=== PATIENT | male | born 1960 | race African-American/Black ===

== ENCOUNTER 2017-12-06 06:58 | Emergency (ER) | payer SELFPAY ==
[~2017-12-06] VITALS: Ht 190.5 cm; Wt 87.0 kg
[2017-12-06] MEDS ORDERED: ONDANSETRON HCL 4MG/2ML VIAL IV STA (07:22)
[2017-12-06] MEDS ORDERED: FENTANYL CITRATE/PF 50MCG/ML 2ML VIAL IV ONE (07:30)
[2017-12-06] MEDS ORDERED: PANTOPRAZOLE SODIUM 40 MG/VIAL IV ONE (07:30)
[2017-12-06] MEDS ORDERED: PANTOPRAZOLE 80 MG in SODIUM CHLORIDE 0.9% 100 ML IV SCH ×2 (07:30→08:30)
[2017-12-06] MEDS ORDERED: SODIUM CHLORIDE 0.9% 1000ML BAG (SEPSIS BOLUS) IV ONE (07:30)
[2017-12-06 08:06] LABS: BG BASE EXCESS -10.3 mmol/L (-2.0-2.0); BG CARBOXYHEMOGLOBIN 0.3 % (0.5-1.5); BG DEOXYHEMOGLOBIN 1.7 % (0.0-5.0); BG HCO3 ACT 15.5 mmol/L (22.0-26.0); BG METHEMOGLOBIN 0.2 % (0.0-1.5); BG OXYGEN SATURATION 98.3 % (92.0-98.5); BG OXYHEMOGLOBIN 97.8 % (94.0-97.0); BG PCO2 34.5 mmHg (35.0-45.0); BG PH 7.271 (7.350-7.450); BG PO2 141.5 mmHg (75.0-100.0); BG SAMPLE SITE RIGHT RADIAL; BG TOTAL HEMOGLOBIN 14.3 g/dL (12.0-18.0); BG VENT MODE MASK - NRB
[2017-12-06 08:16] LABS: BASOPHILS % 0.3 % (0.0-2.0); EOSINOPHILS % 0.6 % (0.0-5.0); HEMATOCRIT. 41.2 % (42.0-52.0); HEMOGLOBIN. 13.6 g/dL (14.0-18.0); LYMPHOCYTES % 14.2 % (20.0-50.0); MEAN CORPUSCULAR VOLUME 88.1 fL (80.0-94.0); MEAN PLATELET VOLUME 8.3 fl (7.4-10.4); MONOCYTES % 6.1 % (2.0-8.0); NEUTROPHILS % 78.8 % (40.0-76.0); PLATELET 249 x1000/uL (130-400); RED BLOOD CELL COUNT 4.67 mill/uL (4.7-6.1); RED CELL DISTRIBUTION WIDTH 13.9 % (11.6-14.6)
[2017-12-06 08:21] LABS: INR 1.1; PROTHROMBIN TIME 11.3 sec (9.4-11.6)
[2017-12-06 08:25] LABS: CHLORIDE 100 mEq/L (98-107)
[2017-12-06 08:29] LABS: CLARITY URINE CLEAR (CLEAR); COLOR URINE DARK YELLOW (YELLOW); KETONES URINE TRACE (NEGATIVE); LEUKOCYTE ESTERASE URINE NEGATIVE (NEGATIVE); NITRITE URINE NEGATIVE (NEGATIVE); OCCULT BLOOD URINE NEGATIVE (NEGATIVE); PROTEIN URINE NEGATIVE (NEGATIVE); SPECIFIC GRAVITY URINE 1.031 (1.005-1.030); UROBILINOGEN URINE 0.2 E.U./dL (0.2-1.0)
[2017-12-06 08:29] LABS: ETHANOL BLOOD < 10 mg/dL; TOTAL IRON BINDING CAPACITY 304 ug/dL (250-450); TROPONIN I 0.32 ng/mL (0.00-0.04)
[2017-12-06 08:45] LABS: *AMPHETAMINES SCREEN URINE NEGATIVE (NEGATIVE); *BARBITURATES SCREEN URINE NEGATIVE (NEGATIVE); *BENZODIAZEPINES SCREEN URINE NEGATIVE (NEGATIVE); *COCAINE SCREEN URINE NEGATIVE (NEGATIVE); CANNABINOID URINE SCREEN PRESUMTIVE POSITIVE (NEGATIVE); METHADONE URINE SCREEN NEGATIVE (NEGATIVE); OPIATES URINE SCREEN PRESUMTIVE POSITIVE (NEGATIVE); PHENCYCLIDINE URINE SCREEN NEGATIVE (NEGATIVE)
[2017-12-06] MEDS ORDERED: ALTEPLASE 100 MG in BAG 1 EACH IV ONE (09:30)
[2017-12-06] MEDS ORDERED: ALTEPLASE 100MG/VIAL IV ONE (09:30)
[2017-12-06] MEDS ORDERED: EPINEPHRINE 0.1MG/ML (1:10,000) 10ML SYR ONE ×4 (09:30→10:34)
[2017-12-06] MEDS ORDERED: NOREPINEPHRINE 4 MG in DEXT 5% WATER 246 ML IV ONE (09:45)
[2017-12-06] MEDS ORDERED: SUCCINYLCHOLINE CHLORIDE 200MG/10ML VIAL IV ONE ×2 (10:00→10:34)
[2017-12-06] MEDS ORDERED: ETOMIDATE 2MG/ML 10ML VIAL IV ONE ×2 (10:00→10:34)
[2017-12-06 10:34] VITALS: BP 158/96
[2017-12-06] MEDS ORDERED: VECURONIUM BROMIDE 10 MG/VIAL IV ONE (10:34)
[2017-12-06] MEDS ORDERED: STERILE WATER FOR INJECTION 10ML VIAL ONE (10:34)
[2017-12-06] MEDS ORDERED: SODIUM BICARBONATE 7.5% 0.9 MEQ/ML 50ML SYR IV ONE (10:34)
[2017-12-06] MEDS ORDERED: ATROPINE SULFATE 1MG/10ML SYR ONE ×2 (10:34)
[2017-12-06] MEDS ORDERED: LIDOCAINE HCL/PF 1% 10 MG/ML 5ML VIAL ONE (10:39)
[2017-12-06] MEDS ORDERED: PHENYLEPHRINE 40 MG in DEXT 5% WATER 246 ML IV PRN (10:45)
[2017-12-06] MEDS ORDERED: PHENYLEPHRINE 10MG in DEXT 5% WATER 250ML IV ONE (11:00)
[2017-12-06] MEDS ORDERED: PHENYLEPHRINE 10 MG in DEXT 5% WATER 249 ML IV ONE (11:00)
[2017-12-06] MEDS ORDERED: EPINEPHRINE 1 MG in SODIUM CHLORIDE 0.9% 249 ML IV PRN ×4 (11:30)
== END 2017-12-06 11:45 | disposition expired ==
LOC: ER 07:34 → EDBEDREQ 09:44 → ER 11:45 → CANBEDREQ 13:52
DX: I46.9 Cardiac arrest, cause unspecified (principal); J96.00 Acute respiratory failure, unspecified whether with hypoxia or hypercapnia; I26.99 Other pulmonary embolism without acute cor pulmonale; N17.9 Acute kidney failure, unspecified; I49.01 Ventricular fibrillation; I50.9 Heart failure, unspecified; E86.1 Hypovolemia; R65.21 Severe sepsis with septic shock; R00.0 Tachycardia, unspecified; E87.2 Acidosis; D86.9 Sarcoidosis, unspecified; I25.2 Old myocardial infarction; Z66 Do not resuscitate
CPT/HCPCS: 31500; 36415; 36600; 71045; 74176; 80053; 80305; 81003; 82375; 82805; 82962; 83540; 83550; 83605; 83690; 83880; 84484; 85025; 85044; 85610; 85730; 86850; 86900; 86901; 87040; 87086; 92950; 93005; 93970; 94002; 96361; 96365; 96375; 99291; A4216; C9113; G0482; J0171; J0330; J0461; J2370; J2405; J2997; J3010; J3490; J7030; Z7610; J7050; J7060